=== PATIENT | male | born 1960 | race Caucasian/White ===

== ENCOUNTER → 2016-11-28 | Outpatient (CLI) | payer OTHER ==
[~2016-11-28] MED LIST: ASPIRIN 81M81 MG/TA2 PO; BACTRIM DS 8001 TAB PO; CENTRUM SILVER1 CTB PO; CEPHALEXIN500 M1 PO; CLEOCIN HCL300 MG PO; COZAAR100 MG PO; DESYREL 50MG50 MG PO; EXCEDRIN1 TAB PO; FLAGYL; FLOVENT 110MCG7.9 GM IH; GLUCOPHAGE1000 MG PO; HARVONI; HCTZ 25MG TAB25 MG PO; KLONOPIN2 MG PO; LEADER CLEARLAX PO; LEXAPRO20 MG PO; MELATONIN5 MG PO; NO HOME MEDICATIONS; NORCO 325 MG-51 TAB PO; NORVASC 10MG10 MG PO; NORVASC 5MG5 MG/TAB PO; OMEGA-3 FISH1200 MG PO; PEPCID40 MG PO; PERCOCET 325 MG1 TA2 PO; PRIL40 PO; PRILOSEC 20MG20 MG PO; PRINZIDE 25 MG-1 TAB PO; PROAIR HFA0.09 MG/AC IH; PROSCAR 5MG5 MG PO; TAMIFLU75 MG PO; TOPROL XL 25MG25 MG PO; TUSS PO; TYLENOL 325MG325 MG PO; ULTRAM 50MG TAB50 MG PO; ZANTAC 300300 MG PO; ZITHROMAX 250M250 MG PO; ZITHROMAX TRI-500 MG PO; ZOCOR 20MG20 MG PO; ZOFRAN8 MG PO
== END ==
LOC: ZLAB.FHCC 11:21
DX: Z01.89 Encounter for other specified special examinations (principal)

== ENCOUNTER → 2017-06-15 | Outpatient (CLI) | payer OTHER ==
[2017-06-15 12:30] LABS: ADJUSTED CALCIUM 9.1 mg/dL (8.4-10.2); ALBUMIN 4.6 gm/dL (3.5-5.0); BILIRUBIN,TOTAL 0.5 mg/dL (0.0-1.0); CALCIUM 9.6 mg/dL (8.4-10.2); CREATININE, serum 0.66 mg/dL (0.66-1.25); POTASSIUM 4.4 mmol/L (3.4-5.0); TOTAL PROTEIN 8.1 gm/dL (6.4-8.2)
== END ==
LOC: COL.LAB 11:39
DX: Z01.89 Encounter for other specified special examinations (principal)

== ENCOUNTER → 2018-03-15 | Outpatient (CLI) | payer SELFPAY ==
[~2018-03-15] MED LIST changes: +TAMIFLU 75MG75 MG PO
== END ==
LOC: COL.LAB 08:22
DX: Z01.89 Encounter for other specified special examinations (principal)

== ENCOUNTER 2018-04-25 14:07 | Observation (INO) | payer SELFPAY ==
[~2018-04-25] VITALS: Ht 165.1 cm; Wt 76.6 kg
[2018-04-25 14:24] LABS: BASO % 0.3 % (0.0-2.0); EOS # 0.1 (0.0-0.7); EOS % 1.7 % (0-4.0); GRAN # 4.3 (1.4-6.5); GRAN % 61.1 % (42.2-75.2); HEMATOCRIT 46.4 % (42.0-52.0); HEMOGLOBIN 15.5 g/dl (13.5-18.0); LYMPH # 1.6 (1.2-3.4); LYMPH % 22.6 % (20.0-51.0); MEAN CELL VOLUME 77 fl (80.0-100.0); MEAN CORPUSCULAR HEMOGLOBIN 26 pg (27.0-31.0); MEAN CORPUSCULAR HGB CONC 33 g/dl (33.0-37.0); MEAN PLATELET VOLUME 9.6 fl (7.4-10.4); PLATELET COUNT 192 K/mm3 (130-400); RED BLOOD COUNT 6.01 M/mm3 (4.20-5.60); REDCELL DISTRIBUTION WIDTH-CV 13.1 % (11.5-14.5)
[2018-04-25 14:28] LABS: PROTHROMBIN TIME 11.2 SECONDS (9.7-12.8)
[2018-04-25 14:31] LABS: PARTIAL THROMBOPLASTIN TIME 37.3 SECONDS (26.0-37.0)
[2018-04-25 14:36] LABS: ALANINE AMINOTRANSFERASE 32 U/L (21-72); ALBUMIN 4.2 gm/dL (3.5-5.0); ALKALINE PHOSPHATASE 60 U/L (50-136); ANION GAP 11 mmol/L (7-16); AST,SGOT 30 U/L (15-37); BILIRUBIN,TOTAL 0.4 mg/dL (0.0-1.0); BLOOD UREA NITROGEN 10 mg/dL (9-20); CALCIUM 9.4 mg/dL (8.4-10.2); CARBON DIOXIDE 28 mmol/L (22-30); GLUCOSE 101 mg/dL (74-106); POTASSIUM 3.9 mmol/L (3.4-5.0); SODIUM 126 mmol/L (137-145); TOTAL PROTEIN 8.3 gm/dL (6.4-8.2)
[2018-04-25 14:38] LABS: CHLORIDE 86 mmol/L (98-107)
[2018-04-25 14:47] LABS: TROPONIN-I < 0.012 ng/mL (0.000-0.034)
[2018-04-25 17:02] VITALS: BP 126/78; PULSE 63; TEMP 97.3
[2018-04-25 19:26] VITALS: BP 129/82; PULSE 81; TEMP 98.6
[2018-04-25 23:26] VITALS: BP 124/69; PULSE 97; TEMP 98.6
[2018-04-26] VITALS (8 sets, daily range): BP systolic 121–146; BP diastolic 74–79; PULSE 64–90; TEMP 97.8–98.7
[2018-04-26 06:35] LABS: BASO % 0.4 % (0.0-2.0); EOS # 0.2 (0.0-0.7); GRAN # 2.8 (1.4-6.5); GRAN % 52.4 % (42.2-75.2); HEMATOCRIT 44.6 % (42.0-52.0); HEMOGLOBIN 14.5 g/dl (13.5-18.0); LYMPH # 1.5 (1.2-3.4); LYMPH % 28.8 % (20.0-51.0); MEAN CELL VOLUME 79 fl (80.0-100.0); MEAN CORPUSCULAR HEMOGLOBIN 26 pg (27.0-31.0); MEAN CORPUSCULAR HGB CONC 33 g/dl (33.0-37.0); MEAN PLATELET VOLUME 9.9 fl (7.4-10.4); MONO # 0.8 (0.1-0.6); MONO % 14.8 % (1.7-9.3); PLATELET COUNT 185 K/mm3 (130-400); RED BLOOD COUNT 5.65 M/mm3 (4.20-5.60); REDCELL DISTRIBUTION WIDTH-CV 13.2 % (11.5-14.5)
[2018-04-26 06:45] LABS: CALCIUM 8.4 mg/dL (8.4-10.2); CREATININE, serum 0.66 mg/dL (0.66-1.25)
[2018-04-27 03:42] VITALS: BP 125/66; PULSE 71; TEMP 97.5
[2018-04-27 06:35] LABS: BASO % 0.6 % (0.0-2.0); EOS # 0.1 (0.0-0.7); EOS % 2.4 % (0-4.0); GRAN # 3.1 (1.4-6.5); GRAN % 57.8 % (42.2-75.2); HEMATOCRIT 45.1 % (42.0-52.0); HEMOGLOBIN 14.1 g/dl (13.5-18.0); LYMPH # 1.4 (1.2-3.4); LYMPH % 26.2 % (20.0-51.0); MEAN CELL VOLUME 81 fl (80.0-100.0); MEAN CORPUSCULAR HEMOGLOBIN 25 pg (27.0-31.0); MEAN CORPUSCULAR HGB CONC 31 g/dl (33.0-37.0); MEAN PLATELET VOLUME 10.3 fl (7.4-10.4); MONO # 0.7 (0.1-0.6); MONO % 12.8 % (1.7-9.3); PLATELET COUNT 185 K/mm3 (130-400); RED BLOOD COUNT 5.59 M/mm3 (4.20-5.60); REDCELL DISTRIBUTION WIDTH-CV 13.3 % (11.5-14.5)
[2018-04-27 06:50] LABS: CALCIUM 8.4 mg/dL (8.4-10.2); CREATININE, serum 0.58 mg/dL (0.66-1.25); POTASSIUM 3.9 mmol/L (3.4-5.0)
[2018-04-27 07:45] VITALS: BP 139/81; PULSE 66; TEMP 97.9
[2018-04-27] MEDS ORDERED: TOPROL XL 25MG25 MG PO (10:52)
[2018-04-27] MEDS ORDERED: LEXAPRO 10MG10 MG PO (10:54)
== END 2018-04-27 12:00 | disposition home or self-care (01) ==
LOC: COL.ER 14:07 → MEDICAL 14:58
PROVIDERS: Family Medicine; Physician Assistant
DX: I95.9 Hypotension, unspecified (principal); R53.1 Weakness; E87.1 Hypo-osmolality and hyponatremia; E87.8 Other disorders of electrolyte and fluid balance, not elsewhere classified; R10.9 Unspecified abdominal pain; R07.89 Other chest pain; K21.9 Gastro-esophageal reflux disease without esophagitis; I10 Essential (primary) hypertension; E78.5 Hyperlipidemia, unspecified; Z79.899 Other long term (current) drug therapy; Z79.82 Long term (current) use of aspirin
CPT/HCPCS: 99223-AI; 99233-AI; 99239; G0378; G8978-GP; G8979-GP; J1650; J7030

== ENCOUNTER → 2018-06-28 | Outpatient (CLI) | payer SELFPAY ==
[~2018-06-28] MED LIST changes: +LEXAPRO 10MG10 MG PO
== END ==
LOC: COL.RAD 08:27
DX: R10.13 Epigastric pain (principal)
CPT/HCPCS: Q9967

== ENCOUNTER → 2018-08-29 | Outpatient (CLI) | payer OTHER | LOC: COL.LAB 15:16 | DX: R03.0 Elevated blood-pressure reading, without diagnosis of hypertension (principal); R51 Headache; Z20.818 Contact with and (suspected) exposure to other bacterial communicable diseases ==

== ENCOUNTER → 2018-09-21 | Outpatient (CLI) | payer OTHER ==
[2018-09-22 12:05] LABS: CATECHOLAMINES-HRS COLLECTED 24 (())
[2018-09-27 16:37] LABS: DOPAMINE 112 mcg/24 h (65-400); EPINEPHRINE 11 mcg/24 h (<21); NOREPINEPHRINE 44 mcg/24 h (15-80); URINE VOLUME 2600 mL (())
== END ==
LOC: COL.LAB 12:53
DX: R51 Headache (principal); R03.0 Elevated blood-pressure reading, without diagnosis of hypertension; Z20.818 Contact with and (suspected) exposure to other bacterial communicable diseases

== ENCOUNTER → 2019-01-24 | Outpatient (CLI) | payer SELFPAY ==
[2019-01-24 11:09] LABS: BASO % 0.5 % (0.0-2.0); EOS # 0.2 (0.0-0.7); EOS % 2.6 % (0-4.0); GRAN # 3.3 (1.4-6.5); GRAN % 53.9 % (42.2-75.2); HEMATOCRIT 48.6 % (42.0-52.0); HEMOGLOBIN 15.9 g/dl (13.5-18.0); LYMPH # 1.8 (1.2-3.4); LYMPH % 28.8 % (20.0-51.0); MEAN CELL VOLUME 78 fl (80.0-100.0); MEAN CORPUSCULAR HEMOGLOBIN 25 pg (27.0-31.0); MEAN CORPUSCULAR HGB CONC 33 g/dl (33.0-37.0); MEAN PLATELET VOLUME 9.2 fl (7.4-10.4); MONO # 0.9 (0.1-0.6); PLATELET COUNT 225 K/mm3 (130-400); RED BLOOD COUNT 6.27 M/mm3 (4.20-5.60); REDCELL DISTRIBUTION WIDTH-CV 13.1 % (11.5-14.5)
[2019-01-24 11:18] LABS: ALBUMIN 4.4 gm/dL (3.5-5.0); BILIRUBIN,TOTAL 0.6 mg/dL (0.0-1.0); CALCIUM 9.5 mg/dL (8.4-10.2); CHOLESTEROL RISK RATIO 3.5; CREATININE, serum 0.79 mg/dL (0.66-1.25); POTASSIUM 4.5 mmol/L (3.4-5.0); TOTAL PROTEIN 7.9 gm/dL (6.4-8.2)
[2019-01-24 11:47] LABS: THYROID STIMULATING HORMONE 0.446 uIU/mL (0.465-4.680)
[2019-01-24 12:55] LABS: COLLECTION METHOD CLEAN CATCH
[2019-01-24 13:04] LABS: PH 7 (5-8); SQUAMOUS EPITHELIAL None Seen /hpf; URINE APPEARANCE Clear; URINE BACTERIA None Seen /hpf; URINE BILIRUBIN Negative (NEGATIVE); URINE BLOOD Negative (NEGATIVE); URINE COLOR Straw; URINE GLUCOSE Negative (NEGATIVE); URINE KETONE Negative (NEGATIVE); URINE LEUKOCYTE ESTERASE Negative (NEGATIVE); URINE NITRATE Negative (NEGATIVE); URINE PROTEIN(semi-quant) Negative (NEGATIVE); URINE RBC 0-2 /hpf; URINE UROBILINOGEN Negative (NEGATIVE)
== END ==
LOC: COL.LAB 10:01
DX: K21.9 Gastro-esophageal reflux disease without esophagitis (principal); I10 Essential (primary) hypertension; E78.5 Hyperlipidemia, unspecified

== ENCOUNTER → 2019-02-07 | Outpatient (CLI) | payer SELFPAY ==
[2019-02-07 14:37] LABS: IRON,SERUM 124 ug/dL (35-150); SODIUM 133 mmol/L (137-145)
[2019-02-07 14:46] LABS: TOTAL IRON BINDING CAPACITY 363 ug/dL (261-462)
[2019-02-07 23:07] LABS: FOLATE (FOLIC ACID) 15.5 ng/mL (7.0-31.4)
== END ==
LOC: COL.LAB 13:21
DX: E87.1 Hypo-osmolality and hyponatremia (principal); R71.8 Other abnormality of red blood cells

== ENCOUNTER → 2019-10-10 | Outpatient (CLI) | payer SELFPAY ==
[2019-10-10 09:29] LABS: HEMATOCRIT 47.6 % (42.0-52.0); HEMOGLOBIN 15.6 g/dl (13.5-18.0); MEAN CELL VOLUME 77 fl (80.0-100.0); MEAN CORPUSCULAR HEMOGLOBIN 25 pg (27.0-31.0); MEAN CORPUSCULAR HGB CONC 33 g/dl (33.0-37.0); MEAN PLATELET VOLUME 9.4 fl (7.4-10.4); PLATELET COUNT 234 K/mm3 (130-400); RED BLOOD COUNT 6.17 M/mm3 (4.20-5.60); REDCELL DISTRIBUTION WIDTH-CV 13.9 % (11.5-14.5)
[2019-10-10 09:34] LABS: ALBUMIN 4.6 gm/dL (3.5-5.0); BILIRUBIN,TOTAL 0.6 mg/dL (0.0-1.0); CALCIUM 9.6 mg/dL (8.4-10.2); CREATININE, serum 0.8 (0.66-1.25); POTASSIUM 4.8 mmol/L (3.4-5.0); TOTAL PROTEIN 8.3 gm/dL (6.4-8.2)
[2019-10-10 10:03] LABS: THYROID STIMULATING HORMONE 0.65 uIU/mL (0.465-4.680)
== END ==
LOC: COL.LAB 08:57
PROVIDERS: Pediatrics
DX: E11.9 Type 2 diabetes mellitus without complications (principal); E78.5 Hyperlipidemia, unspecified; B18.2 Chronic viral hepatitis C

== ENCOUNTER 2020-01-10 20:31 | Emergency (ER) | payer MEDICAID ==
[~2020-01-10] VITALS: Ht 165.1 cm; Wt 81.8 kg
[2020-01-10 20:47] VITALS: TEMP 97.6
[2020-01-10 21:18] LABS: BASO % 0.4 % (0.0-2.0); EOS # 0.2 (0.0-0.7); EOS % 3.2 % (0-4.0); GRAN # 3.6 (1.4-6.5); GRAN % 49.9 % (42.2-75.2); HEMATOCRIT 47.6 % (42.0-52.0); LYMPH # 2.3 (1.2-3.4); LYMPH % 31.5 % (20.0-51.0); MEAN CELL VOLUME 77 fl (80.0-100.0); MEAN CORPUSCULAR HEMOGLOBIN 24 pg (27.0-31.0); MEAN CORPUSCULAR HGB CONC 32 g/dl (33.0-37.0); MEAN PLATELET VOLUME 9.4 fl (7.4-10.4); MONO # 1.1 (0.1-0.6); MONO % 14.9 % (1.7-9.3); PLATELET COUNT 247 K/mm3 (130-400); RED BLOOD COUNT 6.17 M/mm3 (4.20-5.60); REDCELL DISTRIBUTION WIDTH-CV 13.5 % (11.5-14.5)
[2020-01-10 21:45] LABS: ALANINE AMINOTRANSFERASE 36 U/L (21-72); ALBUMIN 4.4 gm/dL (3.5-5.0); ALKALINE PHOSPHATASE 57 U/L (50-136); ANION GAP 9 mmol/L (7-16); AST,SGOT 34 U/L (15-37); BILIRUBIN,TOTAL 0.4 mg/dL (0.0-1.0); BLOOD UREA NITROGEN 16 mg/dL (9-20); CALCIUM 9.4 mg/dL (8.4-10.2); CARBON DIOXIDE 28 mmol/L (22-30); CHLORIDE 98 mmol/L (98-107); CREATININE, serum 0.75 (0.66-1.25); GLUCOSE 98 mg/dL (74-106); LIPASE 88 U/L (23-300); POTASSIUM 3.9 mmol/L (3.4-5.0); SODIUM 135 mmol/L (137-145); TOTAL PROTEIN 8.1 gm/dL (6.4-8.2)
[2020-01-10 21:46] LABS: C-REACTIVE PROTEIN < 0.5 mg/dL (0.0-0.9)
[2020-01-10] MEDS ORDERED: PAMELOR 25MG25 MG PO ×2 (22:20→22:45)
[2020-01-10] MEDS ORDERED: COZAAR100 MG PO (22:21)
[2020-01-10] MEDS ORDERED: CARAFATE 1GM1 G PO (22:45)
[2020-01-11 00:32] VITALS: BP 161/99; PULSE 51
== END 2020-01-11 00:42 | disposition home or self-care (01) ==
LOC: COL.ER 20:31
PROVIDERS: Emergency Medicine
DX: K29.70 Gastritis, unspecified, without bleeding (principal); I10 Essential (primary) hypertension; I25.10 Atherosclerotic heart disease of native coronary artery without angina pectoris; Z88.1 Allergy status to other antibiotic agents; Z88.0 Allergy status to penicillin; Z79.82 Long term (current) use of aspirin
CPT/HCPCS: C9113; J2270; J2405; J7030

== ENCOUNTER 2020-02-26 16:19 | Emergency (ER) | payer SELFPAY ==
[~2020-02-26] VITALS: Ht 165.1 cm; Wt 81.8 kg
[~2020-02-26 16:19] MED LIST changes: +CARAFATE 1GM1 G PO; +PAMELOR 25MG25 MG PO
[2020-02-26 16:35] VITALS: TEMP 98.6
[2020-02-26] MEDS ORDERED: FLEXERIL 1010 MG/TAB PO (17:23)
[2020-02-26] MEDS ORDERED: ZOFRAN ODT4 MG PO (17:23)
[2020-02-26 17:37] VITALS: BP 152/99; PULSE 84
== END 2020-02-26 17:37 | disposition home or self-care (01) ==
LOC: COL.ER 16:19
DX: S30.1XXA Contusion of abdominal wall, initial encounter (principal); I10 Essential (primary) hypertension; E11.9 Type 2 diabetes mellitus without complications; K21.9 Gastro-esophageal reflux disease without esophagitis; Z79.84 Long term (current) use of oral hypoglycemic drugs; Z79.82 Long term (current) use of aspirin; W22.8XXA Striking against or struck by other objects, initial encounter; Y92.69 Other specified industrial and construction area as the place of occurrence of the external cause; Y99.0 Civilian activity done for income or pay

== ENCOUNTER 2020-03-15 00:56 | Observation (INO) | payer MEDICAID ==
[~2020-03-15] VITALS: Ht 165.1 cm; Wt 81.6 kg
[~2020-03-15 00:56] MED LIST changes: +FLEXERIL 1010 MG/TAB PO; +ZOFRAN ODT4 MG PO
[2020-03-15 01:28] LABS: BASO % 0.5 % (0.0-2.0); EOS # 0.2 (0.0-0.7); EOS % 2.4 % (0-4.0); GRAN # 3.8 (1.4-6.5); GRAN % 56.3 % (42.2-75.2); HEMATOCRIT 46.7 % (42.0-52.0); HEMOGLOBIN 15.3 g/dl (13.5-18.0); LYMPH # 1.8 (1.2-3.4); LYMPH % 27.2 % (20.0-51.0); MEAN CELL VOLUME 77 fl (80.0-100.0); MEAN CORPUSCULAR HEMOGLOBIN 25 pg (27.0-31.0); MEAN CORPUSCULAR HGB CONC 33 g/dl (33.0-37.0); MEAN PLATELET VOLUME 9.6 fl (7.4-10.4); MONO # 0.9 (0.1-0.6); MONO % 13.4 % (1.7-9.3); PLATELET COUNT 212 K/mm3 (130-400); RED BLOOD COUNT 6.07 M/mm3 (4.20-5.60); REDCELL DISTRIBUTION WIDTH-CV 13.4 % (11.5-14.5)
[2020-03-15 01:35] LABS: INR 1.1 (0.8-3.0); PROTHROMBIN TIME 11.9 SECONDS (9.7-12.8)
[2020-03-15 01:41] LABS: ALANINE AMINOTRANSFERASE 25 U/L (4-49); ALBUMIN 4.4 gm/dL (3.5-5.0); ALKALINE PHOSPHATASE 65 U/L (50-136); ANION GAP 8 mmol/L (7-16); AST,SGOT 31 U/L (15-37); BILIRUBIN,TOTAL 0.4 mg/dL (0.0-1.0); BLOOD UREA NITROGEN 10 mg/dL (9-20); CALCIUM 9.1 mg/dL (8.4-10.2); CARBON DIOXIDE 28 mmol/L (22-30); CHLORIDE 97 mmol/L (98-107); CREATININE, serum 0.84 (0.66-1.25); GLUCOSE 92 mg/dL (74-106); SODIUM 133 mmol/L (137-145); TOTAL PROTEIN 8.1 gm/dL (6.4-8.2)
[2020-03-15 02:09] LABS: TROPONIN-I < 0.012 ng/mL (0.000-0.035)
[2020-03-15 08:50] VITALS: BP 141/87; PULSE 63; TEMP 97.7
--- NOTE | 2020-03-15 09:00 | NUR ---
Pt admitted to medical unit rm [id number] from ED. Pt A&O x 4, denies chest pain at this time, reports headache to back of head 5 out of 10. Doctor notified and orders received. Saline lock IV to left AC without s/s of complications. Physical assessment unremarkable. Call light in reach.
[2020-03-15 11:57] VITALS: BP 148/83; PULSE 62; TEMP 97.3
[2020-03-15 15:36] VITALS: BP 142/86; PULSE 71; TEMP 97.5
--- NOTE | 2020-03-15 17:30 | NUR ---
Pt ambulating in room with steady gait, denies pain or needs. Uneventful shift. POC reviewed with pt regarding NPO status at midnight and testing in am. Pt verbalizes understanding. Call light in reach.
[2020-03-15 19:47] VITALS: BP 144/82; PULSE 70; TEMP 97.8
--- NOTE | 2020-03-15 20:00 | NUR ---
PATIENT LYING COMFORTABLE ON COT DENIES DISCOMFORT, CHEERFUL, COPPERATES WITH REGULAR EYE CONTACT, SOCIALABLE
[2020-03-15 21:38] LABS: CHOLESTEROL RISK RATIO 4.8
[2020-03-15 23:36] VITALS: BP 145/87; PULSE 63; TEMP 97.6
[2020-03-16] VITALS (8 sets, daily range): BP systolic 138–153; BP diastolic 80–95; PULSE 70–114; TEMP 97.8–98.6
--- NOTE | 2020-03-16 08:16 | NUR ---
Pt assessment complete. Pt is laying in bed upon entry, has had stress test dye injection. Currently denies any chest pain. No SOB. Pt denies general pain. No N/V. Requesting to take aspirin when he can eat d/t an ulcer. No needs at this time. Call light within reach.
--- NOTE | 2020-03-16 08:35 | NUR ---
Pt left for lexiscan at this time.
--- NOTE | 2020-03-16 10:58 | NUR ---
TREY met with the patient to discuss discharge plan. The patient lives in [place] with his , Gayatri (ph#[phone]), and son. He reports independence with ADLs and does not have any DME. The patient's PCP is Dr. Grace Guerra and he receives his medications at [facility]. He reports no difficulties obtaining his meds. The patient does not have advanced directives completed. The patient plans to return home with his his family upon discharge. The patient had some questions about a stay here that he had in February that he states should be billed under Worker's Comp. TREY notified Financial Counselor, Eva. Eva reports that the patient needs to provide his Worker's Comp information. TREY informed the patient of this and he verbalized understanding. No other additional needs at this time.
--- NOTE | 2020-03-16 16:13 | NUR ---
Discharge instructions and paperwork reviewed with patient. All questions answered at this time. IV to RAC dc'd catheter tip intact. Pt walked to billing for questions at this time and to car.
== END 2020-03-16 16:14 | disposition home or self-care (01) ==
LOC: COL.ER 00:56 → MEDICAL 07:14
PROVIDERS: Emergency Medicine; ADMIT Hospitalist
DX: R07.9 Chest pain, unspecified (principal); I10 Essential (primary) hypertension; E78.5 Hyperlipidemia, unspecified; Z87.19 Personal history of other diseases of the digestive system; Z88.0 Allergy status to penicillin; Z88.1 Allergy status to other antibiotic agents; Z91.018 Allergy to other foods; Z91.011 Allergy to milk products; Z79.82 Long term (current) use of aspirin
CPT/HCPCS: A9500; G0378; J1650; J2270; J2405; J2785

== ENCOUNTER → 2020-03-31 | Outpatient (CLI) | payer MEDICAID | LOC: COL.RAD 07:53 | DX: I71.00 Dissection of unspecified site of aorta (principal) | CPT/HCPCS: Q9967 ==

== ENCOUNTER 2020-06-19 22:15 | Emergency (ER) | payer MEDICAID ==
[~2020-06-19] VITALS: Ht 165.1 cm; Wt 81.8 kg
[2020-06-19 22:29] VITALS: TEMP 97.7
[2020-06-19 22:56] LABS: BASO % 0.5 % (0.0-2.0); EOS # 0.3 (0.0-0.7); EOS % 4.5 % (0-4.0); GRAN # 2.9 (1.4-6.5); GRAN % 49.6 % (42.2-75.2); HEMATOCRIT 41.2 % (42.0-52.0); HEMOGLOBIN 13.5 g/dl (13.5-18.0); LYMPH # 1.9 (1.2-3.4); LYMPH % 32.2 % (20.0-51.0); MEAN CELL VOLUME 76 fl (80.0-100.0); MEAN CORPUSCULAR HEMOGLOBIN 25 pg (27.0-31.0); MEAN CORPUSCULAR HGB CONC 33 g/dl (33.0-37.0); MEAN PLATELET VOLUME 9.1 fl (7.4-10.4); MONO # 0.8 (0.1-0.6); PLATELET COUNT 187 K/mm3 (130-400); RED BLOOD COUNT 5.44 M/mm3 (4.20-5.60); REDCELL DISTRIBUTION WIDTH-CV 13.7 % (11.5-14.5)
[2020-06-19 23:04] LABS: PROTHROMBIN TIME 11.7 SECONDS (9.7-12.8)
[2020-06-19 23:06] LABS: PARTIAL THROMBOPLASTIN TIME 39.9 SECONDS (26.0-37.0)
[2020-06-19 23:10] LABS: ALANINE AMINOTRANSFERASE 21 U/L (4-49); ALBUMIN 3.9 gm/dL (3.5-5.0); ALKALINE PHOSPHATASE 50 U/L (50-136); ANION GAP 9 mmol/L (7-16); AST,SGOT 26 U/L (15-37); BILIRUBIN,TOTAL 0.4 mg/dL (0.0-1.0); BLOOD UREA NITROGEN 8 mg/dL (9-20); CALCIUM 9.1 mg/dL (8.4-10.2); CARBON DIOXIDE 27 mmol/L (22-30); CHLORIDE 92 mmol/L (98-107); GLUCOSE 164 mg/dL (74-106); LIPASE 87 U/L (23-300); POTASSIUM 4.2 mmol/L (3.4-5.0); SODIUM 127 mmol/L (137-145); TOTAL PROTEIN 7.4 gm/dL (6.4-8.2)
[2020-06-19 23:12] LABS: C-REACTIVE PROTEIN < 0.5 mg/dL (0.0-0.9)
[2020-06-20 00:36] LABS: COLLECTION METHOD CLEAN CATCH
[2020-06-20] MEDS ORDERED: TETRACYCLI500 MG/CAP (01:16)
[2020-06-20] MEDS ORDERED: NORVASC 5MG5 MG/TAB PO (01:16)
[2020-06-20] MEDS ORDERED: IMDUR 30MG30 MG/TAB PO (01:17)
[2020-06-20] MEDS ORDERED: NORCO 325 MG-51 TAB PO (01:21)
[2020-06-20 01:22] LABS: PH 6 (5-8); SQUAMOUS EPITHELIAL None Seen /hpf; URINE APPEARANCE Clear; URINE BACTERIA None Seen /hpf; URINE BILIRUBIN Negative (NEGATIVE); URINE BLOOD Negative (NEGATIVE); URINE COLOR Straw; URINE GLUCOSE Negative (NEGATIVE); URINE KETONE Negative (NEGATIVE); URINE LEUKOCYTE ESTERASE Negative (NEGATIVE); URINE NITRATE Negative (NEGATIVE); URINE PROTEIN(semi-quant) Negative (NEGATIVE); URINE RBC 0-2 /hpf; URINE UROBILINOGEN Negative (NEGATIVE)
[2020-06-20 01:32] VITALS: BP 123/83; PULSE 60
== END 2020-06-20 01:45 | disposition home or self-care (01) ==
LOC: COL.ER 22:15
PROVIDERS: Emergency Medicine
DX: R10.84 Generalized abdominal pain (principal); Z79.82 Long term (current) use of aspirin; I10 Essential (primary) hypertension; Z87.11 Personal history of peptic ulcer disease
CPT/HCPCS: C9113; J2405; J7030; Q9967

== ENCOUNTER 2020-10-23 00:06 | Emergency (ER) | payer MEDICAID ==
[~2020-10-23] VITALS: Ht 165.1 cm; Wt 85.9 kg
[~2020-10-23 00:06] MED LIST changes: +IMDUR 30MG30 MG/TAB PO; +TETRACYCLI500 MG/CAP
[2020-10-23 00:15] VITALS: TEMP 97.9
[2020-10-23 00:44] LABS: BASO % 0.5 % (0.0-2.0); EOS # 0.1 (0.0-0.7); EOS % 0.8 % (0-4.0); GRAN # 6.7 (1.4-6.5); GRAN % 76.4 % (42.2-75.2); HEMATOCRIT 43.1 % (42.0-52.0); HEMOGLOBIN 14.1 g/dl (13.5-18.0); LYMPH # 1.2 (1.2-3.4); LYMPH % 13.7 % (20.0-51.0); MEAN CELL VOLUME 77 fl (80.0-100.0); MEAN CORPUSCULAR HEMOGLOBIN 25 pg (27.0-31.0); MEAN CORPUSCULAR HGB CONC 33 g/dl (33.0-37.0); MEAN PLATELET VOLUME 9.1 fl (7.4-10.4); MONO # 0.7 (0.1-0.6); MONO % 8.4 % (1.7-9.3); PLATELET COUNT 238 K/mm3 (130-400); RED BLOOD COUNT 5.61 M/mm3 (4.20-5.60); REDCELL DISTRIBUTION WIDTH-CV 13.1 % (11.5-14.5)
[2020-10-23 00:50] LABS: PROTHROMBIN TIME 11.6 SECONDS (9.7-12.8)
[2020-10-23 00:55] LABS: ALANINE AMINOTRANSFERASE 21 U/L (4-49); ALBUMIN 4.6 gm/dL (3.5-5.0); ALKALINE PHOSPHATASE 58 U/L (50-136); ANION GAP 11 mmol/L (7-16); AST,SGOT 25 U/L (15-37); BILIRUBIN,TOTAL 0.5 mg/dL (0.0-1.0); BLOOD UREA NITROGEN 7 mg/dL (9-20); CALCIUM 9.5 mg/dL (8.4-10.2); CARBON DIOXIDE 25 mmol/L (22-30); CHLORIDE 97 mmol/L (98-107); GLUCOSE 197 mg/dL (74-106); LIPASE 55 U/L (23-300); POTASSIUM 3.7 mmol/L (3.4-5.0); SODIUM 133 mmol/L (137-145); TOTAL PROTEIN 8.1 gm/dL (6.4-8.2)
[2020-10-23 01:28] LABS: TROPONIN-I < 0.012 ng/mL (0.000-0.035)
[2020-10-23 03:50] VITALS: BP 144/96; PULSE 67
== END 2020-10-23 03:50 | disposition home or self-care (01) ==
LOC: COL.ER 00:06
PROVIDERS: Emergency Medicine
DX: K29.70 Gastritis, unspecified, without bleeding (principal); I10 Essential (primary) hypertension; E78.5 Hyperlipidemia, unspecified; Z79.82 Long term (current) use of aspirin
CPT/HCPCS: C9113; J2060; J2405

== ENCOUNTER 2020-10-25 | Emergency (ER) | payer MEDICAID ==
[~2020-10-25] VITALS: Ht 165.1 cm; Wt 58.6 kg
[2020-10-25 00:10] VITALS: TEMP 97.5
[2020-10-25] MEDS ORDERED: ARICEPT 5MG PO (00:25)
[2020-10-25 01:05] VITALS: BP 139/97; PULSE 94
== END 2020-10-25 01:05 | disposition home or self-care (01) ==
LOC: COL.ER
DX: K29.70 Gastritis, unspecified, without bleeding (principal); R42 Dizziness and giddiness; I10 Essential (primary) hypertension; F03.90 Unspecified dementia, unspecified severity, without behavioral disturbance, psychotic disturbance, mood disturbance, and anxiety; Z88.0 Allergy status to penicillin; Z88.1 Allergy status to other antibiotic agents; Z79.82 Long term (current) use of aspirin

== ENCOUNTER → 2020-11-18 | Outpatient (CLI) | payer MEDICAID ==
[~2020-11-18] MED LIST changes: +ARICEPT 5MG PO
== END ==
LOC: COL.RAD 14:45
DX: R06.02 Shortness of breath (principal)

== ENCOUNTER → 2020-12-06 | Outpatient (CLI) | payer MEDICAID | LOC: COL.PUL 11:40 | DX: R06.02 Shortness of breath (principal) ==

== ENCOUNTER 2020-12-24 11:21 | Emergency (ER) | payer MEDICAID ==
[~2020-12-24] VITALS: Ht 165.1 cm; Wt 84.1 kg
[~2020-12-24 11:21] MED LIST changes: -PREDNISONE20 MG PO
[2020-12-24 11:29] VITALS: TEMP 97.6
[2020-12-24] MEDS ORDERED: PREDNISONE20 MG PO (13:08)
[2020-12-24] MEDS ORDERED: PROAIR HFA0.09 MG/AC IH (13:09)
[2020-12-24 13:22] VITALS: BP 124/96; PULSE 75
== END 2020-12-24 13:22 | disposition home or self-care (01) ==
LOC: COL.ER 11:21
DX: J45.901 Unspecified asthma with (acute) exacerbation (principal); I10 Essential (primary) hypertension; Z88.0 Allergy status to penicillin; Z88.1 Allergy status to other antibiotic agents; Z91.011 Allergy to milk products; Z91.018 Allergy to other foods; Z79.82 Long term (current) use of aspirin
CPT/HCPCS: J2405; J2930; J7030

== ENCOUNTER → 2020-12-24 | Outpatient (CLI) | payer MEDICAID ==
[~2020-12-24] MED LIST changes: +PREDNISONE20 MG PO
--- NOTE | 2020-12-24 14:57 | NUR ---
PATIENT ON PREVIOUS PFT SHOWED 22% CHANGE IN FEV1 POST BRONCHODIALATOR. CALLED DR. BOWERS OFFICE TO CONFIRM STILL WANTED METHACHOLINE CHALLENGE DONE. WAS INFORMED THAT THEY STILL WOULD LIKE TEST DONE. PROCEEDED WITH TEST.
== END ==
LOC: COL.PUL 09:52
DX: R06.02 Shortness of breath (principal)
CPT/HCPCS: J7674

== ENCOUNTER 2021-01-07 12:05 | Emergency (ER) | payer MEDICAID ==
[~2021-01-07] VITALS: Ht 165.1 cm; Wt 82.7 kg
[~2021-01-07 12:05] MED LIST changes: -ARICEPT 5MG PO; +ARICEPT10 MG PO; +PREDNISONE20 MG PO
[2021-01-07 12:12] VITALS: TEMP 97.7
[2021-01-07 12:26] LABS: BASO % 0.7 % (0.0-2.0); EOS # 0.1 (0.0-0.7); EOS % 2.3 % (0-4.0); GRAN # 3.4 (1.4-6.5); GRAN % 56.2 % (42.2-75.2); HEMOGLOBIN 14.8 g/dl (13.5-18.0); LYMPH # 1.8 (1.2-3.4); MEAN CELL VOLUME 77 fl (80.0-100.0); MEAN CORPUSCULAR HEMOGLOBIN 25 pg (27.0-31.0); MEAN CORPUSCULAR HGB CONC 32 g/dl (33.0-37.0); MEAN PLATELET VOLUME 9.2 fl (7.4-10.4); MONO # 0.7 (0.1-0.6); MONO % 11.6 % (1.7-9.3); PLATELET COUNT 230 K/mm3 (130-400); RED BLOOD COUNT 5.94 M/mm3 (4.20-5.60); REDCELL DISTRIBUTION WIDTH-CV 13.5 % (11.5-14.5)
[2021-01-07 12:33] LABS: PROTHROMBIN TIME 11.3 SECONDS (9.7-12.8)
[2021-01-07 12:36] LABS: PARTIAL THROMBOPLASTIN TIME 36.2 SECONDS (26.0-37.0)
[2021-01-07 12:37] LABS: ALANINE AMINOTRANSFERASE 28 U/L (4-49); ALBUMIN 4.2 gm/dL (3.5-5.0); ALKALINE PHOSPHATASE 49 U/L (50-136); ANION GAP 6 mmol/L (7-16); AST,SGOT 31 U/L (15-37); BILIRUBIN,TOTAL 0.6 mg/dL (0.0-1.0); BLOOD UREA NITROGEN 10 mg/dL (9-20); CALCIUM 9.3 mg/dL (8.4-10.2); CARBON DIOXIDE 30 mmol/L (22-30); CHLORIDE 94 mmol/L (98-107); CREATININE, serum 0.79 (0.66-1.25); GLUCOSE 127 mg/dL (74-106); LIPASE 60 U/L (23-300); POTASSIUM 4.1 mmol/L (3.4-5.0); SODIUM 130 mmol/L (137-145); TOTAL PROTEIN 7.6 gm/dL (6.4-8.2)
[2021-01-07 12:58] LABS: TROPONIN-I < 0.012 ng/mL (0.000-0.035)
[2021-01-07 15:09] LABS: COLLECTION METHOD CLEAN CATCH
[2021-01-07 15:20] LABS: PH 7 (5-8); SQUAMOUS EPITHELIAL 0-2 /hpf; URINE APPEARANCE Clear; URINE BACTERIA Rare /hpf; URINE BILIRUBIN Negative (NEGATIVE); URINE BLOOD Negative (NEGATIVE); URINE COLOR Colorless; URINE GLUCOSE Negative (NEGATIVE); URINE KETONE Negative (NEGATIVE); URINE LEUKOCYTE ESTERASE Negative (NEGATIVE); URINE NITRATE Negative (NEGATIVE); URINE PROTEIN(semi-quant) Negative (NEGATIVE); URINE RBC 0-2 /hpf; URINE UROBILINOGEN Negative (NEGATIVE); URINE WBC 0-2 /hpf
[2021-01-07 16:42] VITALS: BP 136/87; PULSE 77
== END 2021-01-07 16:53 | disposition home or self-care (01) ==
LOC: COL.ER 12:05
PROVIDERS: Emergency Medicine
DX: R07.9 Chest pain, unspecified (principal); I10 Essential (primary) hypertension; E78.5 Hyperlipidemia, unspecified; J45.909 Unspecified asthma, uncomplicated; K21.9 Gastro-esophageal reflux disease without esophagitis; Z88.0 Allergy status to penicillin; Z88.1 Allergy status to other antibiotic agents; Z79.51 Long term (current) use of inhaled steroids; Z79.82 Long term (current) use of aspirin
CPT/HCPCS: J2270; J2405; J7030

== ENCOUNTER 2021-01-10 09:04 | Day surgery (SDC) | payer MEDICAID, OTHER ==
[~2021-01-10] VITALS: Ht 165.1 cm; Wt 69.4 kg
[2021-01-10] VITALS (14 sets, daily range): BP systolic 89–137; BP diastolic 57–94; PULSE 57–95; TEMP 97.1
[2021-01-10 10:12] LABS: HEMATOCRIT 45.9 % (42.0-52.0); HEMOGLOBIN 14.9 g/dl (13.5-18.0); MEAN CELL VOLUME 77 fl (80.0-100.0); MEAN CORPUSCULAR HEMOGLOBIN 25 pg (27.0-31.0); MEAN CORPUSCULAR HGB CONC 33 g/dl (33.0-37.0); MEAN PLATELET VOLUME 9.2 fl (7.4-10.4); PLATELET COUNT 215 K/mm3 (130-400); RED BLOOD COUNT 5.95 M/mm3 (4.20-5.60); REDCELL DISTRIBUTION WIDTH-CV 13.4 % (11.5-14.5)
[2021-01-10 10:15] LABS: PROTHROMBIN TIME 11.6 SECONDS (9.7-12.8)
[2021-01-10 10:18] LABS: PARTIAL THROMBOPLASTIN TIME 34.5 SECONDS (26.0-37.0)
[2021-01-10 10:20] LABS: CALCIUM 9.5 mg/dL (8.4-10.2); CREATININE, serum 0.78 (0.66-1.25); POTASSIUM 4.1 mmol/L (3.4-5.0)
[2021-01-10] MEDS ORDERED: VITAMIN D31000 I1 (10:31)
[2021-01-10] MEDS ORDERED: FLOMAX 0.40.4 MG/CAP PO (10:31)
[2021-01-10] MEDS ORDERED: PAMELOR 25MG25 MG PO (10:31)
[2021-01-10] MEDS ORDERED: NORCO 325 MG-51 TAB PO (10:32)
[2021-01-10] MEDS ORDERED: COREG12.5 MG PO (10:33)
[2021-01-10] MEDS ORDERED: MULTIVITAMIN SEN (10:34)
[2021-01-10] MEDS ORDERED: OMEGA-3 FISH1000 MG PO (10:35)
[2021-01-10] MEDS ORDERED: RT SPIRIVA18 MCG IH (10:35)
[2021-01-10] MEDS ORDERED: RT ADVAIR 528 DISKUS IH (10:36)
--- NOTE | 2021-01-10 11:31 | NUR ---
Verified PORK allergy listed on chart. Patient and state allergy only due to buddhist beliefs.
--- NOTE | 2021-01-10 15:15 | NUR ---
TR BAND DEFLATED, AND HEMATOMA DEVELOPED AT PUNCTURE SITE, MANUAL PRESSURE HELD FOR 10 MINUTES, THEN PRESSURE DRESSING WAS APPLIED (BAND AID, 2 FOLDED 2X2S PLACED ON PUNCTURE SITE, WRAPPED WITH COBAN). CMS INTACT DISTAL. PT WAS ATTEMPTING TO STAND WHEN HE BECAME DIAPHORETIC, NAUSEATED AND DIZZY, AND ALSO REPORTED MILD SOB AND CP. PT'S HR DROPPED TO 50'S AND SYSTOLIC BP WAS 89. EVA WAS PAGED AND NOTIFIED. PT'S SYMPTOMS IMPROVED AFTER A FEW MINUTES AFTER LYING BACK DOWN IN BED. ORDER RECEIVED TO ADMINISTER REMAINING 1/2 NS (400CC) A BOLUS.
--- NOTE | 2021-01-10 17:00 | NUR ---
Pt to exit at this time via wheelchair. Pt did well after fluid bolus. He felt much better, vitals remained stable. Pt was able to ambulate with steady gait, no dizziness, voided with no problem. IV was dc'd with cath intact, dressing was applied. Rt. Wrist puncture site continues to look good, site is soft, no bleeding or hematoma. cms intact distal. I have reviewed dc/fu instructions with pt and , they both deny questions or concerns at time of departure.
== END 2021-01-10 17:34 | disposition home or self-care (01) ==
LOC: COL.CAR
PROVIDERS: Internal Medicine Cardiovascular Disease
DX: I25.10 Atherosclerotic heart disease of native coronary artery without angina pectoris (principal); I10 Essential (primary) hypertension; Q21.1 Atrial septal defect; E78.2 Mixed hyperlipidemia; Z79.82 Long term (current) use of aspirin; Z20.822 Contact with and (suspected) exposure to COVID-19; Z79.899 Other long term (current) drug therapy; Z88.8 Allergy status to other drugs, medicaments and biological substances; Z91.040 Latex allergy status; Z88.0 Allergy status to penicillin; Z88.1 Allergy status to other antibiotic agents
CPT/HCPCS: C1769; C1887; J1644; J2250; J3010; Q9967

== ENCOUNTER 2021-03-06 12:04 | Emergency (ER) | payer MEDICAID ==
[~2021-03-06] VITALS: Ht 165.1 cm; Wt 81.8 kg
[~2021-03-06 12:04] MED LIST changes: +COREG12.5 MG PO; +FLOMAX 0.40.4 MG/CAP PO; +MULTIVITAMIN SEN; +OMEGA-3 FISH1000 MG PO; +RT ADVAIR 528 DISKUS IH; +RT SPIRIVA18 MCG IH; +VITAMIN D31000 I1
[2021-03-06 12:09] VITALS: TEMP 98.1
[2021-03-06 12:41] LABS: BASO % 0.6 % (0.0-2.0); EOS # 0.2 (0.0-0.7); EOS % 3.3 % (0-4.0); GRAN # 4.1 (1.4-6.5); GRAN % 60.9 % (42.2-75.2); HEMATOCRIT 40.9 % (42.0-52.0); HEMOGLOBIN 13.2 g/dl (13.5-18.0); LYMPH # 1.5 (1.2-3.4); LYMPH % 22.3 % (20.0-51.0); MEAN CELL VOLUME 76 fl (80.0-100.0); MEAN CORPUSCULAR HEMOGLOBIN 25 pg (27.0-31.0); MEAN CORPUSCULAR HGB CONC 32 g/dl (33.0-37.0); MEAN PLATELET VOLUME 9.3 fl (7.4-10.4); MONO # 0.9 (0.1-0.6); MONO % 12.6 % (1.7-9.3); PLATELET COUNT 209 K/mm3 (130-400); RED BLOOD COUNT 5.35 M/mm3 (4.20-5.60); REDCELL DISTRIBUTION WIDTH-CV 13.6 % (11.5-14.5)
[2021-03-06 12:47] LABS: BILIRUBIN,TOTAL 0.4 mg/dL (0.0-1.0); CREATININE, serum 0.94 (0.66-1.25); POTASSIUM 3.8 mmol/L (3.4-5.0); TOTAL PROTEIN 7.2 gm/dL (6.4-8.2)
[2021-03-06 12:58] LABS: TROPONIN-I 0.015 ng/mL (0.000-0.035)
[2021-03-06 14:38] VITALS: BP 128/78; PULSE 84
[2021-03-06 14:45] LABS: COLLECTION METHOD CLEAN CATCH
[2021-03-06 14:50] LABS: PH 6 (5-8); SQUAMOUS EPITHELIAL None Seen /hpf; URINE APPEARANCE Clear; URINE BACTERIA None Seen /hpf; URINE BILIRUBIN Negative (NEGATIVE); URINE BLOOD Negative (NEGATIVE); URINE COLOR Yellow; URINE GLUCOSE Negative (NEGATIVE); URINE KETONE Negative (NEGATIVE); URINE LEUKOCYTE ESTERASE Negative (NEGATIVE); URINE NITRATE Negative (NEGATIVE); URINE PROTEIN(semi-quant) Negative (NEGATIVE); URINE RBC 0-2 /hpf; URINE UROBILINOGEN Negative (NEGATIVE)
== END 2021-03-06 14:45 | disposition home or self-care (01) ==
LOC: COL.ER 12:04
PROVIDERS: Emergency Medicine
DX: R42 Dizziness and giddiness (principal); R07.9 Chest pain, unspecified; R93.41 Abnormal radiologic findings on diagnostic imaging of renal pelvis, ureter, or bladder; Z88.0 Allergy status to penicillin; Z88.1 Allergy status to other antibiotic agents; Z79.82 Long term (current) use of aspirin
CPT/HCPCS: J2405; J3010; J7030; Q9967

== ENCOUNTER 2021-04-25 01:47 | Emergency (ER) | payer MEDICAID ==
[~2021-04-25] VITALS: Ht 165.1 cm; Wt 84.1 kg
[2021-04-25 02:03] VITALS: TEMP 97.7
[2021-04-25 02:52] LABS: BASO % 0.6 % (0.0-2.0); EOS # 0.2 (0.0-0.7); GRAN # 3.4 (1.4-6.5); GRAN % 48.6 % (42.2-75.2); HEMATOCRIT 45.7 % (42.0-52.0); LYMPH # 2.2 (1.2-3.4); MEAN CELL VOLUME 76 fl (80.0-100.0); MEAN CORPUSCULAR HEMOGLOBIN 25 pg (27.0-31.0); MEAN CORPUSCULAR HGB CONC 33 g/dl (33.0-37.0); MEAN PLATELET VOLUME 9.2 fl (7.4-10.4); MONO # 1.1 (0.1-0.6); MONO % 16.5 % (1.7-9.3); PLATELET COUNT 234 K/mm3 (130-400); RED BLOOD COUNT 6.02 M/mm3 (4.20-5.60); REDCELL DISTRIBUTION WIDTH-CV 13.4 % (11.5-14.5)
[2021-04-25 03:08] LABS: ALBUMIN 4.6 gm/dL (3.5-5.0); BILIRUBIN,TOTAL 0.6 mg/dL (0.0-1.0); CALCIUM 9.7 mg/dL (8.4-10.2); CREATININE, serum 0.74 (0.66-1.25); POTASSIUM 4.5 mmol/L (3.4-5.0); TOTAL PROTEIN 8.5 gm/dL (6.4-8.2)
[2021-04-25 03:19] LABS: TROPONIN-I 0.016 ng/mL (0.000-0.035)
[2021-04-25 03:55] LABS: COLLECTION METHOD CLEAN CATCH
[2021-04-25 04:01] LABS: PH 7 (5-8); SQUAMOUS EPITHELIAL 0-2 /hpf; URINE APPEARANCE Clear; URINE BACTERIA None Seen /hpf; URINE BILIRUBIN Negative (NEGATIVE); URINE BLOOD Negative (NEGATIVE); URINE COLOR Straw; URINE GLUCOSE Negative (NEGATIVE); URINE KETONE Negative (NEGATIVE); URINE LEUKOCYTE ESTERASE Negative (NEGATIVE); URINE NITRATE Negative (NEGATIVE); URINE PROTEIN(semi-quant) Negative (NEGATIVE); URINE UROBILINOGEN Negative (NEGATIVE); URINE WBC 0-2 /hpf
[2021-04-25] MEDS ORDERED: PROAIR DIGIHAL90 MCG IH (06:03)
[2021-04-25] MEDS ORDERED: ZOFRAN ODT4 MG PO (06:03)
[2021-04-25] MEDS ORDERED: PREDNISONE20 MG PO (06:03)
[2021-04-25 06:15] VITALS: BP 136/86; PULSE 74
== END 2021-04-25 06:15 | disposition home or self-care (01) ==
LOC: COL.ER 01:47
PROVIDERS: Emergency Medicine
DX: K59.00 Constipation, unspecified (principal); R07.89 Other chest pain; R05 Cough; R06.02 Shortness of breath; J45.901 Unspecified asthma with (acute) exacerbation; I10 Essential (primary) hypertension; I25.10 Atherosclerotic heart disease of native coronary artery without angina pectoris; E78.5 Hyperlipidemia, unspecified; Z20.822 Contact with and (suspected) exposure to COVID-19; Z79.82 Long term (current) use of aspirin; Z79.51 Long term (current) use of inhaled steroids; Z79.899 Other long term (current) drug therapy
CPT/HCPCS: J1100; J7030

== ENCOUNTER 2021-07-12 16:21 | Emergency (ER) | payer MEDICAID ==
[~2021-07-12] VITALS: Ht 165.1 cm; Wt 88.2 kg
[~2021-07-12 16:21] MED LIST changes: +PROAIR DIGIHAL90 MCG IH
[2021-07-12 16:27] VITALS: TEMP 98.1
[2021-07-12 17:07] LABS: BASO % 0.6 % (0.0-2.0); EOS # 0.2 (0.0-0.7); EOS % 2.2 % (0-4.0); GRAN # 3.9 (1.4-6.5); GRAN % 56.2 % (42.2-75.2); HEMATOCRIT 44.9 % (42.0-52.0); HEMOGLOBIN 14.6 g/dl (13.5-18.0); LYMPH # 1.9 (1.2-3.4); LYMPH % 26.8 % (20.0-51.0); MEAN CELL VOLUME 79 fl (80.0-100.0); MEAN CORPUSCULAR HEMOGLOBIN 26 pg (27.0-31.0); MEAN CORPUSCULAR HGB CONC 33 g/dl (33.0-37.0); MEAN PLATELET VOLUME 9.3 fl (7.4-10.4); MONO % 13.9 % (1.7-9.3); PLATELET COUNT 231 K/mm3 (130-400); RED BLOOD COUNT 5.72 M/mm3 (4.20-5.60); REDCELL DISTRIBUTION WIDTH-CV 13.8 % (11.5-14.5)
[2021-07-12 17:38] LABS: ALBUMIN 4.4 gm/dL (3.5-5.0); BILIRUBIN,TOTAL 0.4 mg/dL (0.0-1.0); CALCIUM 9.6 mg/dL (8.4-10.2); CREATININE, serum 0.81 (0.66-1.25); POTASSIUM 4.2 mmol/L (3.4-5.0); TOTAL PROTEIN 7.8 gm/dL (6.4-8.2)
[2021-07-12 17:49] LABS: TROPONIN-I 0.013 ng/mL (0.000-0.035)
[2021-07-12] MEDS ORDERED: PEPCID 20MG TAB20 MG PO (19:39)
[2021-07-12] MEDS ORDERED: BENTYL 10MG10 MG/CAP PO (19:39)
[2021-07-12 20:04] VITALS: BP 151/99; PULSE 77
== END 2021-07-12 20:08 | disposition home or self-care (01) ==
LOC: COL.ER 16:21
PROVIDERS: Emergency Medicine
DX: R10.13 Epigastric pain (principal); I25.10 Atherosclerotic heart disease of native coronary artery without angina pectoris; I10 Essential (primary) hypertension; E78.5 Hyperlipidemia, unspecified; J45.909 Unspecified asthma, uncomplicated; Z79.52 Long term (current) use of systemic steroids; Z79.899 Other long term (current) drug therapy; Z79.82 Long term (current) use of aspirin; Z20.822 Contact with and (suspected) exposure to COVID-19
CPT/HCPCS: J2405; J7030; Q9967

== ENCOUNTER → 2021-08-19 | Outpatient (CLI) | payer MEDICAID ==
[~2021-08-19] MED LIST changes: +BENTYL 10MG10 MG/CAP PO; +PEPCID 20MG TAB20 MG PO
== END ==
LOC: COL.RAD 09:04
DX: R07.89 Other chest pain (principal)

== ENCOUNTER → 2022-01-09 | Outpatient (CLI) | payer MEDICAID | LOC: DIA.ED 10:41 | DX: E11.65 Type 2 diabetes mellitus with hyperglycemia (principal); Z79.84 Long term (current) use of oral hypoglycemic drugs; E78.5 Hyperlipidemia, unspecified; I10 Essential (primary) hypertension | CPT/HCPCS: G0108 ==

== ENCOUNTER 2022-01-25 14:28 | Emergency (ER) | payer MEDICAID ==
[~2022-01-25] VITALS: Ht 165.1 cm; Wt 87.3 kg
[2022-01-25 14:32] VITALS: TEMP 97.6
[2022-01-25 15:45] LABS: BASO % 0.7 % (0.0-2.0); EOS # 0.2 K/mm3 (0.0-0.7); EOS % 4.6 % (0.0-4.0); GRAN # 2.3 K/mm3 (1.4-6.5); GRAN % 52.7 % (42.2-75.2); HEMATOCRIT 42.2 % (42.0-52.0); HEMOGLOBIN 13.7 g/dl (13.5-18.0); LYMPH # 1.2 K/mm3 (1.2-3.4); LYMPH % 26.5 % (20.0-51.0); MEAN CELL VOLUME 78 fl (80.0-100.0); MEAN CORPUSCULAR HEMOGLOBIN 25 pg (27-31); MEAN CORPUSCULAR HGB CONC 33 g/dl (33.0-37.0); MEAN PLATELET VOLUME 9.6 fl (7.4-10.4); MONO # 0.7 K/mm3 (0.1-0.6); MONO % 15.3 % (1.7-9.3); PLATELET COUNT 202 K/mm3 (130-400); RED BLOOD COUNT 5.41 M/mm3 (4.20-5.60); REDCELL DISTRIBUTION WIDTH-CV 14.1 % (11.5-14.5)
[2022-01-25 15:48] LABS: INR 1.1 (0.8-3.0); PROTHROMBIN TIME 11.9 SECONDS (9.7-12.8)
[2022-01-25 15:51] LABS: PARTIAL THROMBOPLASTIN TIME 34.5 SECONDS (26.0-37.0)
[2022-01-25 15:57] LABS: ALANINE AMINOTRANSFERASE 22 U/L (0-55); ALBUMIN 3.7 gm/dL (3.4-4.8); ALKALINE PHOSPHATASE 51 U/L (40-150); ANION GAP 7 mmol/L (7-16); AST,SGOT 14 U/L (5-34); BILIRUBIN,TOTAL 0.6 mg/dL (0.2-1.2); BLOOD UREA NITROGEN 9 mg/dL (8-26); CALCIUM 8.8 mg/dL (8.4-10.2); CARBON DIOXIDE 25 mmol/L (23-31); CHLORIDE 99 mmol/L (98-107); CREATININE, serum 0.95 mg/dL (0.72-1.25); GLUCOSE 196 mg/dL (70-99); POTASSIUM 4.1 mmol/L (3.5-4.5); SODIUM 131 mmol/L (136-145); TOTAL PROTEIN 6.8 gm/dL (6.2-8.1)
[2022-01-25 16:03] LABS: TROPONIN-I < 0.010 ng/mL (0.00-0.033)
[2022-01-25 16:39] VITALS: BP 106/72; PULSE 80
== END 2022-01-25 16:39 | disposition home or self-care (01) ==
LOC: COL.ER 14:28
PROVIDERS: Family Medicine
DX: R07.89 Other chest pain (principal); R06.02 Shortness of breath; Z98.61 Coronary angioplasty status
CPT/HCPCS: J1644

== ENCOUNTER → 2022-02-13 | Outpatient (CLI) | payer MEDICAID | LOC: DIA.ED 08:20 | DX: E11.65 Type 2 diabetes mellitus with hyperglycemia (principal); Z79.84 Long term (current) use of oral hypoglycemic drugs; E78.5 Hyperlipidemia, unspecified; I10 Essential (primary) hypertension | CPT/HCPCS: G0108 ==

== ENCOUNTER 2023-11-20 17:43 | Emergency (ER) | payer MEDICARE, MEDICAID ==
[~2023-11-20] VITALS: Ht 165.1 cm; Wt 90.0 kg
[2023-11-20 17:57] VITALS: TEMP 98.2
[2023-11-20] MEDS ORDERED: Ondansetron 4 MG/2 ML VIAL IV ONE (18:30)
[2023-11-20] MEDS ORDERED: Ketorolac 15 MG/ML VIAL IV ONE (18:30)
[2023-11-20] MEDS ORDERED: NS 1,000 ML IV ONE (18:30)
[2023-11-20 18:31] LABS: BASO % 0.8 % (0.0-2.0); EOS # 0.3 K/mm3 (0.0-0.7); GRAN # 2.6 K/mm3 (1.4-6.5); GRAN % 53.3 % (42.2-75.2); LYMPH # 1.3 K/mm3 (1.2-3.4); LYMPH % 26.4 % (20.0-51.0); MEAN CELL VOLUME 77 fl (80.0-100.0); MEAN CORPUSCULAR HEMOGLOBIN 25 pg (27-31); MEAN CORPUSCULAR HGB CONC 33 g/dl (33.0-37.0); MONO # 0.7 K/mm3 (0.1-0.6); MONO % 14.3 % (1.7-9.3); PLATELET COUNT 238 K/mm3 (130-400); RED BLOOD COUNT 6.39 M/mm3 (4.20-5.60); REDCELL DISTRIBUTION WIDTH-CV 13.6 % (11.5-14.5)
[2023-11-20 18:48] LABS: ALBUMIN 4.3 gm/dL (3.4-4.8); BILIRUBIN,TOTAL 0.7 mg/dL (0.2-1.2); CALCIUM 9.6 mg/dL (8.4-10.2); CREATININE, serum 1.08 mg/dL (0.72-1.25); TOTAL PROTEIN 7.9 gm/dL (6.2-8.1)
[2023-11-20] MEDS ORDERED: Iohexol 300 - 100 ML VIAL IV ONE (19:07)
[2023-11-20] MEDS ORDERED: NS 60 ML IV ONE (19:09)
[2023-11-20 19:45] LABS: COLLECTION METHOD CLEAN CATCH
[2023-11-20 20:09] LABS: SQUAMOUS EPITHELIAL 0-2 /hpf (0-10); URINE APPEARANCE Clear (CLEAR/HAZY); URINE BLOOD Negative (NEGATIVE); URINE COLOR Yellow (YELLOW); URINE GLUCOSE Negative (NEGATIVE); URINE KETONE Negative (NEGATIVE); URINE NITRATE Negative (NEGATIVE); URINE PROTEIN(semi-quant) Negative (NEGATIVE); URINE RBC None Seen /hpf (0-2); URINE UROBILINOGEN 0.2 E.U/dL (0.2-1.0)
[2023-11-20 20:16] VITALS: BP 126/85; PULSE 83
== END 2023-11-20 20:16 | disposition home or self-care (01) ==
LOC: COL.ER 17:43
PROVIDERS: Physician Assistant
DX: K76.0 Fatty (change of) liver, not elsewhere classified (principal); R10.0 Acute abdomen
CPT/HCPCS: J1885; J2405; J7030; Q9967

== ENCOUNTER → 2024-01-21 | Outpatient (CLI) | payer MEDICARE, MEDICAID | LOC: COL.RAD 13:53 | DX: K21.9 Gastro-esophageal reflux disease without esophagitis (principal); R13.10 Dysphagia, unspecified ==

== ENCOUNTER 2024-05-05 08:57 | Emergency (ER) | payer MEDICARE, MEDICAID ==
[~2024-05-05] VITALS: Ht 165.1 cm; Wt 84.5 kg
[2024-05-05 09:02] VITALS: TEMP 97.5
[2024-05-05] MEDS ORDERED: Tranexamic Acid 1,000 MG/10 ML VIAL TOP ONE (10:00)
[2024-05-05 12:55] VITALS: BP 114/79; PULSE 93
== END 2024-05-05 13:01 | disposition home or self-care (01) ==
LOC: COL.ER 08:57
DX: K02.9 Dental caries, unspecified (principal)

== ENCOUNTER 2024-06-11 22:06 | Emergency (ER) | payer MEDICARE, MEDICAID ==
[~2024-06-11] VITALS: Ht 165.1 cm; Wt 84.5 kg
[2024-06-11 22:11] VITALS: TEMP 97.8
[2024-06-11] MEDS ORDERED: diphenhydrAMINE 50 MG/ML 1 ML VIAL IM ONE (22:45)
[2024-06-11] MEDS ORDERED: methylPREDNISolone Sod Succ 125 MG/2 ML VIAL IM ONE (22:45)
[2024-06-11 23:02] LABS: BASO % 0.3 % (0.0-2.0); EOS # 0.2 K/mm3 (0.0-0.7); EOS % 1.7 % (0.0-4.0); GRAN # 6.9 K/mm3 (1.4-6.5); GRAN % 74.6 % (42.2-75.2); HEMOGLOBIN 14.8 g/dl (13.5-18.0); LYMPH # 1.3 K/mm3 (1.2-3.4); LYMPH % 13.6 % (20.0-51.0); MEAN CELL VOLUME 76 fl (80.0-100.0); MEAN CORPUSCULAR HEMOGLOBIN 25 pg (27-31); MEAN CORPUSCULAR HGB CONC 33 g/dl (33.0-37.0); MEAN PLATELET VOLUME 9.1 fl (7.4-10.4); MONO # 0.9 K/mm3 (0.1-0.6); MONO % 9.6 % (1.7-9.3); PLATELET COUNT 230 K/mm3 (130-400); RED BLOOD COUNT 5.91 M/mm3 (4.20-5.60); REDCELL DISTRIBUTION WIDTH-CV 13.4 % (11.5-14.5)
[2024-06-11 23:09] LABS: ERYTHROCYTE SEDIMENTATION RATE 14 mm/hr (0-30)
[2024-06-11 23:20] LABS: ALBUMIN 4.1 g/dL (3.4-4.8); BILIRUBIN,TOTAL 0.5 mg/dL (0.2-1.2); C-REACTIVE PROTEIN 1.14 mg/dL (0.00-0.50); CALCIUM 9.5 mg/dL (8.4-10.2); POTASSIUM 3.9 mEq/L (3.5-4.5); TOTAL PROTEIN 7.6 g/dl (6.2-8.1)
[2024-06-11] MEDS ORDERED: PREDNISONE20 MG PO ×2 (23:29→23:30)
[2024-06-11 23:48] VITALS: BP 143/83; PULSE 96
== END 2024-06-11 23:48 | disposition home or self-care (01) ==
LOC: COL.ER 22:06
PROVIDERS: Family Medicine
DX: T78.3XXA Angioneurotic edema, initial encounter (principal); Z79.899 Other long term (current) drug therapy
CPT/HCPCS: J1200; J2919